=== PATIENT | male | born 1935 | race Caucasian/White ===

== ENCOUNTER 2017-05-02 07:54 | Day surgery (SDC) | payer MEDICARE, BC ==
[~2017-05-02 07:54] MED LIST: Lactated Ringers 1,000 ML IV SCH; Sodium Chloride 0.9% 10 ML Syringe FLUSH PRN
[2017-05-02] MEDS ORDERED: Ondansetron 4 MG/2 ML SDV IV ONE (07:55)
[2017-05-02] MEDS ORDERED: Propofol 200 MG/20 ML SDV IV ONE (07:55)
[2017-05-02] MEDS ORDERED: Glycopyrrolate 0.2 MG/ML 2 ML SDV IV ONE (07:55)
[2017-05-02] MEDS ORDERED: fentaNYL 100 MCG/2 ML SDV IV ONE (07:55)
[2017-05-02] MEDS ORDERED: Midazolam 1 MG/ML 2 ML SDV IV ONE (07:55)
[2017-05-02] MEDS ORDERED: ePHEDrine 50 MG/ML SDV IV ONE (07:55)
[2017-05-02] MEDS ORDERED: Lidocaine 1% with EPINEPHrine 1:100,000 30 ML MDV ONE (09:09)
[2017-05-02 09:29] LABS: CHLORIDE,CL 106 mmol/L (101-111); SODIUM,NA 139 mmol/L (135-145)
[2017-05-02] MEDS ORDERED: ceFAZolin 1 GM in Premix Bag 1 BAG IV ONE (10:00)
[2017-05-02] MEDS ORDERED: Lidocaine 1% with EPINEPHrine 1:100,000 30 ML MDV INJECT ONE (10:27)
--- NOTE | 2017-05-02 12:40 | OR ---
DATE: 05/02/2017 PREOPERATIVE DIAGNOSIS: Left inguinal hernia. POSTOPERATIVE DIAGNOSIS: Left indirect inguinal hernia. PROCEDURE: Open repair of left indirect inguinal hernia with mesh. ANESTHESIA: General. ESTIMATED BLOOD LOSS: Minimal. SPECIMEN: Hernia sac. INDICATION FOR PROCEDURE: This 82-year-old male has a symptomatic left inguinal hernia. PROCEDURE IN DETAIL: After adequate preparation, a left lower quadrant incision was made over the inguinal area and carried down to the external abdominal oblique. The fibers were incised longitudinally, and a superior and inferior flap was created. The inguinal canal contained an obvious large hernia sac. This was elevated out of the inguinal canal, and the sac was dissected free from the spermatic cord and vessels. The sac was then amputated using a Prolene suture at the base near the deep inguinal ring. The floor of the inguinal canal and hernia defect was then repaired using a Prolene mesh. This was run along the inguinal ligament with a 0 Prolene suture, and interrupted sutures were used to tack this to the rectus sheath superiorly. A brewster hole had been cut in the mesh and surrounded the cord. This adequately then closed the deep inguinal ring. The external oblique was resewn over the mesh using a 0 Vicryl suture. The Jennifer's and skin were closed with absorbable stitches. The patient was taken to recovery room in good condition. [facility] /[id number]
[2017-05-02 14:29] VITALS: BP 150/75
== END 2017-05-02 13:40 | disposition home or self-care (01) ==
LOC: DL.SDS 07:54
PROVIDERS: ATTEND Surgery
DX: K40.90 Unilateral inguinal hernia, without obstruction or gangrene, not specified as recurrent (principal); I25.10 Atherosclerotic heart disease of native coronary artery without angina pectoris; K21.9 Gastro-esophageal reflux disease without esophagitis; N40.0 Benign prostatic hyperplasia without lower urinary tract symptoms; I10 Essential (primary) hypertension; Z79.899 Other long term (current) drug therapy; Z95.5 Presence of coronary angioplasty implant and graft
CPT/HCPCS: 36415; 49505; 80048; 85014; 85018; J0690; J2250; J2405; J2704; J3010; J7120; 00830; C1781; J3490

== ENCOUNTER 2017-11-14 06:58 | Emergency (ER) | payer MEDICARE, BC ==
[2017-11-14 07:09] VITALS: BP 157/62
--- NOTE | 2017-11-14 07:30 | EDM.PDOC ---
ED HPI GENERAL MEDICAL PROBLEM - General Stated Complaint: IN BY AMBULANCE Time Seen by Provider: 11/14/17 07:20 Source of Information: Reports: Patient History Limitations: Reports: No Limitations - History of Present Illness INITIAL COMMENTS - FREE TEXT/NARRATIVE: This 82 yo male patient was brought to the ED by [facility] with an intercept from [facility] due to lower abdominal pain and a syncopial episode this morning. The patient reports that he feels a little better now, but continues to have some lower abdominal pain. The patient rates his current pain at a 1/10 mostly in the lower abdomen. The patient reports that he currently feels like he needs to have a bowel movement or urinate. The patient denies any lightheadedness at this time. The patient reports that he has been coming down with a "chest cold" and felt like he had some chest heaviness last night, but does not report any heaviness at this time. The patient reports that he had a bowel movement yesterday, but has not had one yet today. Onset: Today Duration: Constant (lower abdominal pain), Improving (lightheadedness) Location: Reports: Chest (heaviness), Abdomen (lower abdominal pain), Generalized (lightheaded) Quality: Reports: Ache, Dull Severity: Mild Improves with: Reports: Other (time) Worsens with: Reports: None Context: Reports: Other Bilateral Lower Abdomen Pain Score (Numeric/FACES): 7 - Related Data Allergies Allergy/AdvReac Type Severity Reaction Status Date / Time No Known Allergies Allergy Verified 11/14/17 07:08 Home Meds: Home Meds Aspirin 81 mg PO BID 01/03/17 [History] Fish Oil/[place]-3 Fatty Acids [Fish Oil 1,000 MG] 1 gm PO BID 01/03/17 [History] Flaxseed Oil [Flaxseed] 1,000 mg PO BID 01/03/17 [History] Glucosamine [Glucosamine Sulfate] 500 mg PO BID 01/03/17 [History] Metoprolol Succinate [Toprol XL] 12.5 mg PO BID 01/03/17 [History] Pravastatin [Pravachol] 20 mg PO .EVENING 01/03/17 [History] Psyllium Husk [Metamucil] 660 gm PO BEDTIME 01/03/17 [History] Omeprazole 20 mg PO DAILY 03/07/18 [History] Past Medical History HEENT History: Reports: None, Hard of Hearing, Impaired Vision Other HEENT History: glasses Cardiovascular History: Reports: Bypass, CAD, SD Other Cardiovascular History: Double bipass. Hx of stents, left in but are not functioning Respiratory History: Reports: None Gastrointestinal History: Reports: Hiatal Hernia, Other (See Below) Other Gastrointestinal History: INGUINAL HERNIA - LEFT. UMBILICAL HERNIA Genitourinary History: Reports: BPH Other Genitourinary History: hx of prostate cancer 2007, had 38 shots of radiation therapy Musculoskeletal History: Reports: Arthritis Neurological History: Reports: None Psychiatric History: Reports: None Endocrine/Metabolic History: Reports: None Hematologic History: Reports: None Immunologic History: Reports: None Oncologic (Cancer) History: Reports: Prostate Dermatologic History: Reports: None - Infectious Disease History Infectious Disease History: Reports: Chicken Pox, Measles, Mumps - Past Surgical History HEENT Surgical History: Reports: Cataract Surgery Other HEENT Surgeries/Procedures: both eyes Cardiovascular Surgical History: Reports: Carotid Stents, Coronary Artery Bypass , Coronary Artery Stent Other Cardiovascular Surgeries/Procedures: stents left in after bipass but are not functioning GI Surgical History: Reports: Appendectomy, Cholecystectomy Male Surgical History: Reports: Prostate Biopsy Musculoskeletal Surgical History: Reports: Knee Replacement Other Musculoskeletal Surgeries/Procedures:: hardware in knees Social & Family History - Family History Family Medical History: Noncontributory - Tobacco Use Smoking Status *Q: Never Smoker Second Hand Smoke Exposure: No - Caffeine Use Caffeine Use: Reports: Coffee Caffeine Use Comment: 2 cups daily - Recreational Drug Use Recreational Drug Use: No ED ROS GENERAL - Review of Systems Review Of Systems: ROS reveals no pertinent complaints other than HPI. ED EXAM, GENERAL - Physical Exam Exam: See Below Exam Limited By: No Limitations General Appearance: Alert, WD/WN, Mild Distress Eye Exam: Bilateral Eye: EOMI, Normal Inspection, PERRL Ears: Normal External Exam, Normal Canal, Hearing Grossly Normal, Normal TMs Nose: Normal Inspection, Normal Mucosa, No Blood Throat/Mouth: Normal Inspection, Normal Lips, Normal Teeth, Normal Gums, Normal Oropharynx, Normal Voice, No Airway Compromise Head: Atraumatic, Normocephalic Neck: Normal Inspection, Supple, Non-Tender, Full Range of Motion Respiratory/Chest: No Respiratory Distress, Lungs Clear, Normal Breath Sounds, No Accessory Muscle Use, Chest Non-Tender Cardiovascular: Normal Peripheral Pulses, Regular Rate, Rhythm, No Edema, No Gallop, No JVD, No Murmur, No Rub GI/Abdominal: Normal Bowel Sounds, Soft, Tender (lower abdomen (diffuse across entire lower abdomen)) (Male) Exam: Deferred Rectal (Males) Exam: Deferred Back Exam: Normal Inspection Extremities: Normal Inspection, Normal Range of Motion, Non-Tender, Normal Capillary Refill, No Pedal Edema Neurological: Alert, Oriented, CN II-XII Intact, Normal Cognition Psychiatric: Normal Affect, Normal Mood Skin Exam: Warm, Dry, Intact, Normal Color, No Rash Lymphatic: No Adenopathy Course - Vital Signs Last Recorded V/S: Last Vital Signs Temp 36.6 C 11/14/17 06:58 Pulse 78 11/14/17 06:58 Resp 20 11/14/17 06:58 BP 157/62 H 11/14/17 06:58 Pulse Ox 100 11/14/17 06:58 - Orders/Labs/Meds Orders: Active Orders 24 hr Category Date Time Status EKG Documentation Completion [RC] URGENT Care 11/14/17 07:07 Ordered Labs: Laboratory Tests 11/14/17 11/14/17 11/14/17 Range/Units 07:16 07:16 07:16 WBC 7.1 (5.0-10.0) 10^3/uL RBC 4.21 L (4.6-6.2) 10^6/uL Hgb 13.6 L (14.0-18.0) g/dL Hct 40.5 (40.0-54.0) % MCV 96.2 (80-100) fL MCH 32.3 (27.0-34.0) pg MCHC 33.6 (33.0-35.0) g/dL Plt Count 306 (150-450) 10^3/uL Neut % (Auto) 77.8 H (42.2-75.2) % Lymph % (Auto) 10.3 L (20.5-50.1) % Archer % (Auto) 8.7 H (2-8) % Eos % (Auto) 2.4 (1.0-3.0) % Baso % (Auto) 0.8 (0.0-1.0) % Sodium 138 (135-145) mmol/L Potassium 4.2 (3.6-5.0) mmol/L Chloride 105 (101-111) mmol/L Carbon Dioxide 24.0 (21.0-31.0) mmol/L Anion Gap 13.2 BUN 20 H (7-18) mg/dL Creatinine 1.2 (0.6-1.3) mg/dL Est Cr Clr Drug Dosing 45.13 mL/min Estimated GFR (MDRD) 58 BUN/Creatinine Ratio 16.66 Glucose 118 H (74-105) mg/dL Calcium 8.6 (8.4-10.2) mg/dl Total Bilirubin 0.8 (0.2-1.0) mg/dL AST 21 (10-42) IU/L ALT 16 (10-60) IU/L Alkaline Phosphatase 72 (42-121) IU/L Troponin I < 0.02 (0.00-0.02) ng/ml Total Protein 6.3 L (6.7-8.2) g/dl Albumin 3.6 (3.2-5.5) g/dl Globulin 2.7 Albumin/Globulin Ratio 1.33 Amylase 35 (28-100) U/L Lipase 29 (22-51) U/L Urine Color (YELLOW) Urine Appearance (CLEAR) Urine pH (5.0-9.0) Ur Specific [place] (1.005-1.030) Urine Protein (NEGATIVE) Urine Glucose (UA) (NEGATIVE) Urine Ketones (NEGATIVE) Urine Occult Blood (NEGATIVE) Urine Nitrite (NEGATIVE) Urine Bilirubin (NEGATIVE) Urine Urobilinogen (0.2-1.0) mg/dL Ur Leukocyte Esterase (NEGATIVE) Urine RBC /HPF Urine WBC (0-5/HPF) /HPF Ur Epithelial Cells /HPF Urine Bacteria (0-FEW/HPF) /HPF 11/14/17 Range/Units 08:19 WBC (5.0-10.0) 10^3/uL RBC (4.6-6.2) 10^6/uL Hgb (14.0-18.0) g/dL Hct (40.0-54.0) % MCV (80-100) fL MCH (27.0-34.0) pg MCHC (33.0-35.0) g/dL Plt Count (150-450) 10^3/uL Neut % (Auto) (42.2-75.2) % Lymph % (Auto) (20.5-50.1) % Archer % (Auto) (2-8) % Eos % (Auto) (1.0-3.0) % Baso % (Auto) (0.0-1.0) % Sodium (135-145) mmol/L Potassium (3.6-5.0) mmol/L Chloride (101-111) mmol/L Carbon Dioxide (21.0-31.0) mmol/L Anion Gap BUN (7-18) mg/dL Creatinine (0.6-1.3) mg/dL Est Cr Clr Drug Dosing mL/min Estimated GFR (MDRD) BUN/Creatinine Ratio Glucose (74-105) mg/dL Calcium (8.4-10.2) mg/dl Total Bilirubin (0.2-1.0) mg/dL AST (10-42) IU/L ALT (10-60) IU/L Alkaline Phosphatase (42-121) IU/L Troponin I (0.00-0.02) ng/ml Total Protein (6.7-8.2) g/dl Albumin (3.2-5.5) g/dl Globulin Albumin/Globulin Ratio Amylase (28-100) U/L Lipase (22-51) U/L Urine Color Yellow (YELLOW) Urine Appearance Clear (CLEAR) Urine pH 7.0 (5.0-9.0) Ur Specific [place] 1.020 (1.005-1.030) Urine Protein Negative (NEGATIVE) Urine Glucose (UA) Negative (NEGATIVE) Urine Ketones Negative (NEGATIVE) Urine Occult Blood Negative (NEGATIVE) Urine Nitrite Negative (NEGATIVE) Urine Bilirubin Negative (NEGATIVE) Urine Urobilinogen 0.2 (0.2-1.0) mg/dL Ur Leukocyte Esterase Negative (NEGATIVE) Urine RBC 0-5 /HPF Urine WBC 0-5 (0-5/HPF) /HPF Ur Epithelial Cells Occasional /HPF Urine Bacteria Occasional (0-FEW/HPF) /HPF - Re-Assessments/Exams Free Text/Narrative Re-Assessment/Exam: 11/14/17 08:40 The patient reports that while in the ED he attempted to have a bowel movement and used his finger to disimpact himself. The patient noticed some bleeding after he disimpacted himself. A digital rectal examination revealed normal rectal tone, there were excoriations to the rectum with no profuse bleeding. The patient's rectal vault was empty at time of examination. The patient was given the option of being moved to the floor for enemas, but the patient declined. The patient would prefer to go home and take laxatives, stool softeners and increase his oral fluid intake. Departure - Departure Time of Disposition: 08:34 Disposition: Home, Self-Care 01 Condition: Fair Clinical Impression: Constipation Qualifiers: Constipation type: unspecified constipation type Qualified Code(s): K59.00 - Constipation, unspecified Syncope Qualifiers: Syncope type: vasovagal syncope Qualified Code(s): R55 - Syncope and collapse - Discharge Information *PRESCRIPTION DRUG MONITORING PROGRAM REVIEWED*: Not Applicable *COPY OF PRESCRIPTION DRUG MONITORING REPORT IN PATIENT AKIRA: Not Applicable Instructions: Syncope, [id number], Constipation, Adult, [id number] Forms: ED Department Discharge Care Plan Goals: The patient was advised of the examination, lab, EKG and x-ray results during the visit. The patient was offered enemas given within the hospital, but the patient declined. The patient was encouraged to take his stool softeners and increase his oral fluid intake. If the patient has any additional symptoms or concerns, the patient should follow-up with his primary care facility or return to the ED. - My Orders Last 24 Hours: My Active Orders 11/14/17 07:07 EKG Documentation Completion [RC] URGENT - Assessment/Plan Last 24 Hours: My Active Orders 11/14/17 07:07 EKG Documentation Completion [RC] URGENT
[2017-11-14 07:42] LABS: ANION GAP 13.2; CHLORIDE,CL 105 mmol/L (101-111); SODIUM,NA 138 mmol/L (135-145)
--- NOTE | 2017-11-14 08:23 | CR ---
Clinical history: 82-year-old male emergency department with chest congestion and lower abdominal suzanna n (syncope). Interpretation: Sternotomy wires and surgical clips anterior mediastinum. Normal cardiac silhouette without cephalization of vascular flow, signs of alveolar edema or dependen t pleural fluid accumulation. No lung mass, hilar lymphadenopathy or focal lobar pneumonia. No atelectasis/collapse. No pneumothorax. CONCLUSION: No acute cardiopulmonary abnormality. (No free subdiaphragmatic air).
--- NOTE | 2017-11-14 08:25 | CR ---
Clinical history: 82-year-old male syncopal episode, chest congestion and lower abdominal pain. "No a cute cardiopulmonary abnormality" this patient with sternotomy wires and mediastinal clips. Interpretation: Mild scoliosis and arthritic changes of the lumbar spine. No foreign body, abdominal soft tissue mass, or mechanical bowel obstruction. (Several tiny phlebolith-like radiopacities in the pelvis particularly on the left). No free subdiaphragmatic air. CONCLUSION: Nonspecific plain film exam abdomen i.e. negative.
== END 2017-11-14 09:44 | disposition home or self-care (01) ==
LOC: DL.ED 06:58
DX: R55 Syncope and collapse (principal); K59.00 Constipation, unspecified; Z79.82 Long term (current) use of aspirin
CPT/HCPCS: 36415; 71046; 74019; 80053; 81001; 82150; 83690; 84484; 85025; 93005; 99283; 99285

== ENCOUNTER 2020-06-22 08:45 | Emergency (ER) | payer MEDICARE, BC ==
--- NOTE | 2020-06-22 08:46 | EDM.PDOC ---
"ED HPI GENERAL MEDICAL PROBLEM - General Chief Complaint: Abdominal Pain Stated Complaint: UNABLE TO URINATE, CONSTIPATED, ABDOMINAL PAIN Time Seen by Provider: 06/22/20 08:45 Source of Information: Reports: Patient, EMS, Old Records, RN, RN Notes Reviewed History Limitations: Reports: No Limitations - History of Present Illness INITIAL COMMENTS - FREE TEXT/NARRATIVE: Pt arrives from home by ambulance with onset of nausea and vomiting after dinner last night. He claims he has been unable to pass any urine since last night, but has the urge to urinate. His last BM was yesterday, but was small and hard, and he did not feel relieved. Pt has had a constant urge to have a BM but cannot pass any stool. He reports onset of fever and chills through the night. Denies cough or shortness of breath. EMS reported pt had chest pain, but pt states it is from his abdomen being over full, and from vomiting. Onset: Gradual Onset Date: 06/21/20 Onset Time: 20:00 Duration: Constant Location: Reports: Abdomen Quality: Reports: Ache, Pressure Severity: Severe Improves with: Reports: None Worsens with: Reports: None Associated Symptoms: Reports: No Other Symptoms Bilateral Bladder Pain Score (Numeric/FACES): 5 - Related Data Allergies Allergy/AdvReac Type Severity Reaction Status Date / Time No Known Allergies Allergy Verified 06/22/20 09:22 Home Meds: Home Meds Aspirin 81 mg PO BID 01/03/17 [History] Flaxseed Oil [Flaxseed] 1,000 mg PO BID 01/03/17 [History] Glucosamine [Glucosamine Sulfate] 500 mg PO BID 01/03/17 [History] Metoprolol Succinate [Toprol XL] 12.5 mg PO BID 01/03/17 [History] Pravastatin [Pravachol] 20 mg PO .EVENING 01/03/17 [History] Psyllium Husk [Metamucil] 660 gm PO BEDTIME 01/03/17 [History] Cholecalciferol (Vitamin D3) [Vitamin D] 5,000 units PO DAILY 08/30/18 [History] Finasteride 5 mg PO DAILY 08/30/18 [History] Lisinopril 5 mg PO DAILY 08/30/18 [History] Multivit-Min/FA/Lycopen/Lutein [Centrum Silver Tablet] 1 tab PO DAILY 08/30/18 [History] Oxybutynin Chloride 5 mg PO DAILY 08/30/18 [History] Past Medical History HEENT History: Reports: Hard of Hearing, Impaired Vision Other HEENT History: glasses Cardiovascular History: Reports: Bypass, CAD, PA, Other (See Below) Other Cardiovascular History: Double bipass. Hx of stents, left in but are not functioning Respiratory History: Reports: None Gastrointestinal History: Reports: Hiatal Hernia, Other (See Below) Other Gastrointestinal History: INGUINAL HERNIA - LEFT. UMBILICAL HERNIA Genitourinary History: Reports: BPH Other Genitourinary History: hx of prostate cancer 2007, had 38 shots of radiation therapy Musculoskeletal History: Reports: Arthritis Neurological History: Reports: None Psychiatric History: Reports: Anxiety Endocrine/Metabolic History: Reports: None Hematologic History: Reports: None Immunologic History: Reports: None Oncologic (Cancer) History: Reports: Prostate Dermatologic History: Reports: None - Infectious Disease History Infectious Disease History: Reports: Chicken Pox, Measles, Mumps - Past Surgical History HEENT Surgical History: Reports: Cataract Surgery Other HEENT Surgeries/Procedures: both eyes Cardiovascular Surgical History: Reports: Carotid Stents, Coronary Artery Bypass, Coronary Artery Stent, Valve Replacement Other Cardiovascular Surgeries/Procedures: stents left in after bipass but are not functioning Respiratory Surgical History: Reports: None GI Surgical History: Reports: Appendectomy, Cholecystectomy, Colonoscopy, EGD, Hernia, Inguinal Male Surgical History: Reports: Prostate Biopsy Endocrine Surgical History: Reports: None Neurological Surgical History: Reports: None Musculoskeletal Surgical History: Reports: Knee Replacement, Shoulder Surgery, Other (See Below) Other Musculoskeletal Surgeries/Procedures:: hardware in knees Oncologic Surgical History: Reports: Other (See Below) Other Oncologic Surgeries/Procedures: PROSTRATE BIOPSY Dermatological Surgical History: Reports: None Social & Family History - Family History Family Medical History: No Pertinent Family History - Caffeine Use Caffeine Use: Reports: Coffee Caffeine Use Comment: 1-2 cups daily - Living Situation & Occupation Living situation: Reports: , with Spouse Occupation: Retired ED ROS GENERAL - Review of Systems Review Of Systems: Comprehensive ROS is negative, except as noted in HPI. ED EXAM, GENERAL - Physical Exam Exam: See Below Exam Limited By: No Limitations General Appearance: Alert, WD/WN, No Apparent Distress Eye Exam: Bilateral Eye: Normal Inspection (No scleral icterus) Nose: Normal Inspection, Normal Mucosa, No Blood Throat/Mouth: Normal Lips, Normal Voice, No Airway Compromise, Other (Dry oral mucosa) Head: Atraumatic, Normocephalic Neck: Normal Inspection, Supple, Non-Tender, Full Range of Motion Respiratory/Chest: No Respiratory Distress, Lungs Clear, Normal Breath Sounds, No Accessory Muscle Use, Chest Non-Tender Cardiovascular: Regular Rate, Rhythm, No Edema, Tachycardia GI/Abdominal: Normal Bowel Sounds, Soft, Pelvis Stable, Distended (Mild), Tender (Generalized), Other (Urinary bladder palpable just below the umbilicus). No: Guarding, Rigid, Rebound (Male) Exam: Deferred Rectal (Males) Exam: Deferred Back Exam: Normal Inspection. No: CVA Tenderness (L), CVA Tenderness (R) Extremities: Normal Inspection, Normal Range of Motion, Non-Tender, Normal Capillary Refill, No Pedal Edema Neurological: Alert, Oriented, CN II-XII Intact, Normal Cognition, Normal Gait, No Motor/Sensory Deficits Psychiatric: Normal Affect, Normal Mood Skin Exam: Warm, Dry, Intact, Normal Color, No Rash #1 Interpretation EKG Date: 06/22/20 Time: 08:49 Rhythm: Other (sinus tachycardia with ventricular premature complex) Rate (Beats/Min): 119 [place]: Other (left anterior fascicular block) P-Wave: Present QRS: Other (LVH with secondary repolarization abnormality) ST-T: Normal QT: Normal Course - Vital Signs Last Recorded V/S: Last Vital Signs Temp 100.0 F 06/22/20 09:50 Pulse 111 H 06/22/20 09:50 Resp 18 06/22/20 09:50 BP 108/46 L 06/22/20 09:50 Pulse Ox 99 06/22/20 09:50 - Orders/Labs/Meds Orders: Active Orders 24 hr Category Date Time Status EKG 12 Lead [EKG Documentation Completion] [RC] STAT Care 06/22/20 08:44 Active Enema [RC] ASDIRECTED Care 06/22/20 11:43 Active Shea Catheter Insertion [Insert Urinary Catheter] [OM. Care 06/22/20 08:55 Ordered PC] Stat Peripheral IV Care [RC] . DIRECTED Care 06/22/20 08:55 Active Urinary Catheter Assessment [RC] ASDIRECTED Care 06/22/20 08:55 Active CULTURE BLOOD [BC] Stat Lab 06/22/20 09:15 Received CULTURE BLOOD [] Stat Lab 06/22/20 09:20 Received CULTURE STREP A CONFIRMATION [] Stat Lab 06/22/20 10:02 Results CULTURE URINE [] Stat Lab 06/22/20 06:09 Received STREP SCRN A RAPID W CULT CONF [] Stat Lab 06/22/20 10:02 Results Sodium Chloride 0.9% [Saline Flush] Med 06/22/20 08:55 Active 10 ml FLUSH ASDIRECTED PRN Blood Culture x2 Reflex Set [OM.PC] Stat Ot 06/22/20 08:54 Ordered Peripheral IV Insertion Adult [OM.PC] Stat Ot 06/22/20 08:54 Ordered Medication Orders Sodium Chloride (Sodium Chloride 0.9% 10 Ml Syringe) 10 ml FLUSH ASDIRECTED PRN PRN Reason: Keep Vein Open Labs: Laboratory Tests 06/22/20 06/22/20 06/22/20 Range/Units 06:09 09:15 09:15 WBC 11.9 H (5.0-10.0) 10^3/uL RBC 4.32 L (4.6-6.2) 10^6/uL Hgb 14.1 (14.0-18.0) g/dL Hct 41.2 (40.0-54.0) % MCV 95.4 (80-100) fL MCH 32.6 (27.0-34.0) pg MCHC 34.2 (33.0-35.0) g/dL Plt Count 349 D (150-450) 10^3/uL Neut % (Auto) 90.6 H (42.2-75.2) % Lymph % (Auto) 0.8 L (20.5-50.1) % [place] % (Auto) 8.4 H (2-8) % Eos % (Auto) 0.1 L (1.0-3.0) % Baso % (Auto) 0.1 (0.0-1.0) % Sodium 142 (136-145) mmol/L Potassium 3.8 (3.5-5.1) mmol/L Chloride 105 (98-107) mmol/L Carbon Dioxide 24 (21-32) mmol/L Anion Gap 16.8 H (7-13) mEq/L BUN 30 H (7-18) mg/dL Creatinine 1.64 H (0.70-1.30) mg/dL Est Cr Clr Drug Dosing 31.28 mL/min Estimated GFR (MDRD) 40 BUN/Creatinine Ratio 18.3 (No establ ref range) Glucose 147 H (70-99) mg/dL Lactic Acid (0.4-2.0) mmol/L Calcium 8.4 L (8.5-10.1) mg/dL Total Bilirubin 0.7 (0.2-1.0) mg/dL AST 16 (15-37) U/L ALT 32 (16-63) U/L Alkaline Phosphatase 84 (46-116) U/L Troponin I < 0.017 (0.000-0.056) ng/mL Total Protein 6.4 (6.4-8.2) g/dL Albumin 3.6 (3.4-5.0) g/dL Globulin 2.8 Albumin/Globulin Ratio 1.3 Amylase 30 (25-115) U/L Lipase 92 (73-393) U/L Urine Color Yellow (YELLOW) Urine Appearance Clear (CLEAR) Urine pH 5.5 (5.0-9.0) Ur Specific [place] 1.020 (1.005-1.030) Urine Protein Negative (NEGATIVE) Urine Glucose (UA) Negative (NEGATIVE) Urine Ketones 15 H (NEGATIVE) Urine Occult Blood Small H (NEGATIVE) Urine Nitrite Negative (NEGATIVE) Urine Bilirubin Negative (NEGATIVE) Urine Urobilinogen 0.2 (0.2-1.0) mg/dL Ur Leukocyte Esterase Trace H (NEGATIVE) Urine RBC 5-10 H /HPF Urine WBC 10-20 H (0-5/HPF) /HPF Ur Epithelial Cells Rare (NOT SEEN) /HPF Amorphous Sediment Few (NOT SEEN) /HPF Urine Bacteria Moderate H (0-FEW/HPF) /HPF Influenza Type A RNA (NEGATIVE) Influenza Type B RNA (NEGATIVE) SARS-CoV-2 RNA (RABIA) (NEGATIVE) 06/22/20 06/22/20 Range/Units 09:15 10:02 WBC (5.0-10.0) 10^3/uL RBC (4.6-6.2) 10^6/uL Hgb (14.0-18.0) g/dL Hct (40.0-54.0) % MCV (80-100) fL MCH (27.0-34.0) pg MCHC (33.0-35.0) g/dL Plt Count (150-450) 10^3/uL Neut % (Auto) (42.2-75.2) % Lymph % (Auto) (20.5-50.1) % [place] % (Auto) (2-8) % Eos % (Auto) (1.0-3.0) % Baso % (Auto) (0.0-1.0) % Sodium (136-145) mmol/L Potassium (3.5-5.1) mmol/L Chloride (98-107) mmol/L Carbon Dioxide (21-32) mmol/L Anion Gap (7-13) mEq/L BUN (7-18) mg/dL Creatinine (0.70-1.30) mg/dL Est Cr Clr Drug Dosing mL/min Estimated GFR (MDRD) BUN/Creatinine Ratio (No establ ref range) Glucose (70-99) mg/dL Lactic Acid 1.9 (0.4-2.0) mmol/L Calcium (8.5-10.1) mg/dL Total Bilirubin (0.2-1.0) mg/dL AST (15-37) U/L ALT (16-63) U/L Alkaline Phosphatase (46-116) U/L Troponin I (0.000-0.056) ng/mL Total Protein (6.4-8.2) g/dL Albumin (3.4-5.0) g/dL Globulin Albumin/Globulin Ratio Amylase (25-115) U/L Lipase (73-393) U/L Urine Color (YELLOW) Urine Appearance (CLEAR) Urine pH (5.0-9.0) Ur Specific [place] (1.005-1.030) Urine Protein (NEGATIVE) Urine Glucose (UA) (NEGATIVE) Urine Ketones (NEGATIVE) Urine Occult Blood (NEGATIVE) Urine Nitrite (NEGATIVE) Urine Bilirubin (NEGATIVE) Urine Urobilinogen (0.2-1.0) mg/dL Ur Leukocyte Esterase (NEGATIVE) Urine RBC /HPF Urine WBC (0-5/HPF) /HPF Ur Epithelial Cells (NOT SEEN) /HPF Amorphous Sediment (NOT SEEN) /HPF Urine Bacteria (0-FEW/HPF) /HPF Influenza Type A RNA Negative (NEGATIVE) Influenza Type B RNA Negative (NEGATIVE) SARS-CoV-2 RNA (RABIA) Negative (NEGATIVE) Meds: Medications Generic Name Dose Route Start Last Admin Trade Name Freq PRN Reason Stop Dose Admin Sodium Chloride 10 ml 06/22/20 08:55 Sodium Chloride 0.9% 10 Ml Syringe FLUSH ASDIRECTED PRN Keep Vein Open Discontinued Medications Generic Name Dose Route Start Last Admin Trade Name Freq PRN Reason Stop Dose Admin Sodium Chloride 1,000 mls @ 999 mls/hr 06/22/20 09:27 06/22/20 09:48 Normal Saline IV 06/22/20 10:27 999 mls/hr .BOLUS ONE Administration Ceftriaxone Sodium 2 gm/ 100 mls @ 200 mls/hr 06/22/20 11:04 06/22/20 11:24 Sodium Chloride IV 06/22/20 11:33 200 mls/hr ONETIME ONE Administration Lactulose 20 gm 06/22/20 11:43 06/22/20 11:55 Lactulose Soln 10 Gm/15 Ml 30 Ml Ud Cup PO 06/22/20 11:44 20 gm ONETIME ONE Administration Lidocaine HCl 10 ml 06/22/20 08:53 Lidocaine 2% Jelly 10 Ml Urojet MUCMEM 06/22/20 08:54 ONETIME ONE Ondansetron HCl 4 mg 06/22/20 08:53 Ondansetron 4 Mg/2 Ml Sdv IV 06/22/20 08:54 ONETIME ONE - Radiology Interpretation Free Text/Narrative:: [facility] Final Radiology Report Call: [phone] assistance Online chat: [email or web address] Name: ASHKAN YUEN Age: 85Years M Date: 06/22/2020 SSN: -- : [id number] Study: CT ABDOMEN PELVIS WO CONT Requesting Physician: ABDULKADIR VIEIRA Images: [id number] Addl Studies: Provided Clinical History: Abdominal pain, fever, constipation Contrast: Without Contrast Medium: Contrast Amount: Contrast Method: Page 1 of 2 PROCEDURE INFORMATION: Exam: CT Abdomen And Pelvis Without Contrast Exam date and time: 06/22/2020 11:10 AM Age: 85 years old Clinical indication: Abdominal pain; Generalized; Prior surgery; Surgery date: 6+ months; Surgery type: Appendectomy, cholecystectomy; Patient HX: HX prostate CA; Additional info: Abdominal pain, fever, constipation TECHNIQUE: Imaging protocol: Computed tomography of the abdomen and pelvis without contrast. Radiation optimization: All CT scans at this facility use at least one of these dose optimization techniques: automated exposure control; mA and/or kV adjustment per patient size (includes targeted exams where dose is matched to clinical indication); or iterative reconstruction. COMPARISON: CT Abdomen Pelvis w Cont 08/29/2018 8:14 AM FINDINGS: Lungs: Chronic changes are present within the lung parenchyma. No pulmonary fibrosis or bronchiectasis identified. Liver: Normal. No mass. Gallbladder and bile ducts: The gallbladder has been removed. There is no biliary tract obstruction. Pancreas: Normal. No ductal dilation. Spleen: Punctate calcifications are present within the spleen likely due to old granulomatous disease. There is also a low-density lesion within the spleen measuring approximately 1.2 x 1.1 cm in size. This is nonspecific and could represent a cyst. Adrenal glands: Normal. No mass. Kidneys and ureters: Normal. No hydronephrosis. Stomach and bowel: Moderate amount of stool is present within the colon. Mild constipation is possible. Stomach and small bowel are decompressed. There is no bowel obstruction. ASHKAN YUEN | Final Radiology Report CONFIDENTIALITY STATEMENT This report is intended only for use by the referring physician, and only in accordance with law. If you received this in error, call [phone]. Page 2 of 2 Appendix: No evidence of appendicitis. Intraperitoneal space: Unremarkable. No free air. No significant fluid collection. Vasculature: Unremarkable. No abdominal aortic aneurysm. Lymph nodes: Unremarkable. No enlarged lymph nodes. Urinary bladder: Shea catheter is present within the urinary bladder. Reproductive: Prostate gland is moderately enlarged. Bones/joints: Moderate grade degenerative changes are noted within the lumbar spine. No compression fracture or focal lesion identified. Soft tissues: Unremarkable. Other findings: Moderate to advanced coronary calcium is present. IMPRESSION: 1. Moderate constipation without obstruction. 2. Shea catheter within the urinary bladder. 3. Moderate prostatomegaly. 4. Punctate calcification is present within the spleen likely due to old granulomatous disease. There is also a small hypoattenuating lesion within the spleen. This is too small to definitively characterize but likely represents a cyst. 5. Status post cholecystectomy without biliary tract obstruction. Thank you for allowing us to participate in the care of your patient. Dictated and Authenticated by: Abimael Valencia MD 06/22/2020 11:40 AM Central Time ([place] & [place]) - Re-Assessments/Exams Free Text/Narrative Re-Assessment/Exam: 06/22/20 13:39 Pt had a large BM and feels relieved. No c/o pain. Departure - Departure Time of Disposition: 13:39 Disposition: Home, Self-Care 01 Condition: Good Clinical Impression: Urinary retention with incomplete bladder emptying, Fecal impaction Constipation Qualifiers: Constipation type: unspecified constipation type Qualified Code(s): K59.00 - Constipation, unspecified Urinary tract infection Qualifiers: Urinary tract infection type: site unspecified Hematuria presence: without hematuria Qualified Code(s): N39.0 - Urinary tract infection, site not specified - Discharge Information *PRESCRIPTION DRUG MONITORING PROGRAM REVIEWED*: Not Applicable *COPY OF PRESCRIPTION DRUG MONITORING REPORT IN PATIENT AKIRA: Not Applicable Instructions: Urinary Tract Infection, Adult, Constipation, Adult, Acute Urinary Retention, Male Forms: ED Department Discharge Additional Instructions: Rx: Cipro 500mg Follow up in clinic this week for recheck if needed. Sepsis Event Note (ED) - Focused Exam Vital Signs: Vital Signs Temp Pulse Resp BP Pulse Ox 06/22/20 09:50 100.0 F 111 H 18 108/46 L 99 06/22/20 08:52 101.8 F H 120 H 13 112/63 96 - My Orders Last 24 Hours: My Active Orders 06/22/20 06:09 CULTURE URINE [RM] Stat 06/22/20 08:44 EKG 12 Lead [EKG Documentation Completion] [RC] STAT 06/22/20 08:54 Blood Culture x2 Reflex Set [OM.PC] Stat Peripheral IV Insertion Adult [OM.PC] Stat 06/22/20 08:55 Shea Catheter Insertion [Insert Urinary Catheter] [OM.PC] Stat Peripheral IV Care [RC] . DIRECTED Urinary Catheter Assessment [RC] ASDIRECTED Sodium Chloride 0.9% [Saline Flush] 10 ml FLUSH ASDIRECTED PRN 06/22/20 09:15 CULTURE BLOOD [BC] Stat 06/22/20 09:20 CULTURE BLOOD [BC] Stat 06/22/20 10:02 CULTURE STREP A CONFIRMATION [RM] Stat STREP SCRN A RAPID W CULT CONF [RM] Stat 06/22/20 11:43 Enema [RC] ASDIRECTED - Assessment/Plan Last 24 Hours: My Active Orders 06/22/20 06:09 CULTURE URINE [RM] Stat 06/22/20 08:44 EKG 12 Lead [EKG Documentation Completion] [RC] STAT 06/22/20 08:54 Blood Culture x2 Reflex Set [OM.PC] Stat Peripheral IV Insertion Adult [OM.PC] Stat 06/22/20 08:55 Shea Catheter Insertion [Insert Urinary Catheter] [OM.PC] Stat Peripheral IV Care [RC] . DIRECTED Urinary Catheter Assessment [RC] ASDIRECTED Sodium Chloride 0.9% [Saline Flush] 10 ml FLUSH ASDIRECTED PRN 06/22/20 09:15 CULTURE BLOOD [BC] Stat 06/22/20 09:20 CULTURE BLOOD [BC] Stat 06/22/20 10:02 CULTURE STREP A CONFIRMATION [RM] Stat STREP SCRN A RAPID W CULT CONF [] Stat 06/22/20 11:43 Enema [RC] ASDIRECTED"
[2020-06-22] MEDS ORDERED: Ondansetron 4 MG/2 ML SDV IV ONE (08:53)
[2020-06-22] MEDS ORDERED: Lidocaine 2% Jelly 10 ML Urojet MUCMEM ONE (08:53)
[2020-06-22] MEDS ORDERED: Sodium Chloride 0.9% 10 ML Syringe FLUSH PRN (08:55)
[2020-06-22] MEDS ORDERED: Sodium Chloride 0.9% 1,000 ML IV ONE (09:27)
[2020-06-22 09:49] LABS: ANION GAP 16.8 mEq/L (7-13); CHLORIDE,CL 105 mmol/L (98-107); SODIUM,NA 142 mmol/L (136-145)
[2020-06-22 09:51] VITALS: BP 108/46; PULSE 111
[2020-06-22 10:54] LABS: CORONAVIRUS COVID-19 NAA NEGATIVE (NEGATIVE)
[2020-06-22] MEDS ORDERED: cefTRIAXone 2 GM in Sodium Chloride 0.9% 100 ML IV ONE (11:04)
--- NOTE | 2020-06-22 11:40 | CT ---
PROCEDURE INFORMATION: Exam: CT Abdomen And Pelvis Without Contrast Exam date and time: 06/22/2020 11:10 AM Age: 85 years old Clinical indication: Abdominal pain; Generalized; Prior surgery; Surgery date: 6+ months; Surgery type: Appendectomy, cholecystectomy; Patient HX: HX prostate CA; Additional info: Abdominal pain, fever, constipation TECHNIQUE: Imaging protocol: Computed tomography of the abdomen and pelvis without contrast. Radiation optimization: All CT scans at this facility use at least one of these dose optimization techniques: automated exposure control; mA and/or kV adjustment per patient size (includes targeted exams where dose is matched to clinical indication); or iterative reconstruction. COMPARISON: CT Abdomen Pelvis w Cont 08/29/2018 8:14 AM FINDINGS: Lungs: Chronic changes are present within the lung parenchyma. No pulmonary fibrosis or bronchiectasis identified. Liver: Normal. No mass. Gallbladder and bile ducts: The gallbladder has been removed. There is no biliary tract obstruction. Pancreas: Normal. No ductal dilation. Spleen: Punctate calcifications are present within the spleen likely due to old granulomatous disease. There is also a low-density lesion within the spleen measuring approximately 1.2 x 1.1 cm in size. This is nonspecific and could represent a cyst. Adrenal glands: Normal. No mass. Kidneys and ureters: Normal. No hydronephrosis. Stomach and bowel: Moderate amount of stool is present within the colon. Mild constipation is possible. Stomach and small bowel are decompressed. There is no bowel obstruction. Appendix: No evidence of appendicitis. Intraperitoneal space: Unremarkable. No free air. No significant fluid collection. Vasculature: Unremarkable. No abdominal aortic aneurysm. Lymph nodes: Unremarkable. No enlarged lymph nodes. Urinary bladder: Shea catheter is present within the urinary bladder. Reproductive: Prostate gland is moderately enlarged. Bones/joints: Moderate grade degenerative changes are noted within the lumbar spine. No compression fracture or focal lesion identified. Soft tissues: Unremarkable. Other findings: Moderate to advanced coronary calcium is present. IMPRESSION: 1. Moderate constipation without obstruction. 2. Shea catheter within the urinary bladder. 3. Moderate prostatomegaly. 4. Punctate calcification is present within the spleen likely due to old granulomatous disease. There is also a small hypoattenuating lesion within the spleen. This is too small to definitively characterize but likely represents a cyst. 5. Status post cholecystectomy without biliary tract obstruction.
[2020-06-22] MEDS ORDERED: Lactulose Soln 10 GM/15 ML 30 ML UD Cup PO ONE (11:43)
== END 2020-06-22 14:45 | disposition home or self-care (01) ==
LOC: DL.ED 08:45
DX: N39.0 Urinary tract infection, site not specified (principal); K59.00 Constipation, unspecified; N40.1 Benign prostatic hyperplasia with lower urinary tract symptoms; R33.8 Other retention of urine; I25.2 Old myocardial infarction; M19.90 Unspecified osteoarthritis, unspecified site; I25.10 Atherosclerotic heart disease of native coronary artery without angina pectoris; Z95.1 Presence of aortocoronary bypass graft; Z79.82 Long term (current) use of aspirin; Z79.899 Other long term (current) drug therapy; Z20.822 Contact with and (suspected) exposure to COVID-19
CPT/HCPCS: 0240U; 36415; 74176; 80053; 81001; 82150; 83605; 83690; 84484; 85025; 87040; 87081; 87086; 87430; 93005; 93010; 96365; 99284; 99285; A9270; J0696; J7030; 81003; 87088; 87186

== ENCOUNTER 2020-10-29 08:41 | Emergency (ER) | payer MEDICARE, BC ==
[2020-10-29] MEDS ORDERED: Sodium Chloride 0.9% 10 ML Syringe FLUSH PRN (09:15)
[2020-10-29 09:22] VITALS: BP 139/75; PULSE 75
--- NOTE | 2020-10-29 09:50 | CT ---
PROCEDURE INFORMATION: Exam: CT Head Without Contrast Exam date and time: 10/29/2020 9:27 AM Age: 85 years old Clinical indication: Other: Near syncope TECHNIQUE: Imaging protocol: Computed tomography of the head without contrast. Radiation optimization: All CT scans at this facility use at least one of these dose optimization techniques: automated exposure control; mA and/or kV adjustment per patient size (includes targeted exams where dose is matched to clinical indication); or iterative reconstruction. COMPARISON: No relevant prior studies available. FINDINGS: Brain: Normal. No hemorrhage. Unremarkable white matter. No mass effect. Cerebral ventricles: No ventriculomegaly. Paranasal sinuses: Fluids/mucosal thickening bilateral maxillary sinuses. Mastoid air cells: Visualized mastoid air cells are well aerated. Bones/joints: Unremarkable. No acute fracture. Soft tissues: Unremarkable. IMPRESSION: 1. No acute intracranial findings. 2. Bilateral mild maxillary sinus disease.
[2020-10-29 10:09] LABS: ANION GAP 11.4 mEq/L (7-13)
[2020-10-29] MEDS ORDERED: Oxymetazoline 0.05% Nasal Spray 30 ML Bottle NAS ONE (10:22)
--- NOTE | 2020-10-29 10:28 | EDM.PDOC ---
ED HPI GENERAL MEDICAL PROBLEM - General Chief Complaint: Cardiovascular Problem Stated Complaint: LIGHT HEADED / COUGH / SINUS INFECTION RECENTL Time Seen by Provider: 10/29/20 10:23 Source of Information: Reports: Patient History Limitations: Reports: No Limitations - History of Present Illness INITIAL COMMENTS - FREE TEXT/NARRATIVE: 85 y/o M c/o sinus congestion, sinus pressure and productive yellow cough since Tuesday. Pt has tried OTC decongestants with no success and reports the medicine made him feel lightheaded and woozy. Hx of 2 vessel bypass in 1999. Pt reports his chest hurts when he coughs. Denies fever, cough, chills, drugs ,etoh, db, abd pn, back n, extremity pn, jaw pain. Pt would like something to help him breathe through his nose better. Onset: Gradual Duration: Day(s): Location: Reports: Head Quality: Reports: Pressure Severity: Mild Improves with: Reports: None Worsens with: Reports: Medication Generalized Pain Score (Numeric/FACES): 8 - Related Data Allergies Allergy/AdvReac Type Severity Reaction Status Date / Time No Known Allergies Allergy Verified 10/29/20 09:23 Home Meds: Home Meds Aspirin 81 mg PO BID 01/03/17 [History] Flaxseed Oil [Flaxseed] 1,000 mg PO BID 01/03/17 [History] Glucosamine [Glucosamine Sulfate] 500 mg PO BID 01/03/17 [History] Metoprolol Succinate [Toprol XL] 12.5 mg PO BID 01/03/17 [History] Pravastatin [Pravachol] 20 mg PO .EVENING 01/03/17 [History] Psyllium Husk [Metamucil] 660 gm PO BEDTIME 01/03/17 [History] Cholecalciferol (Vitamin D3) [Vitamin D] 5,000 units PO DAILY 08/30/18 [History] Finasteride 5 mg PO DAILY 08/30/18 [History] Lisinopril 5 mg PO DAILY 08/30/18 [History] Multivit-Min/FA/Lycopen/Lutein [Centrum Silver Tablet] 1 tab PO DAILY 08/30/18 [History] Oxybutynin Chloride 5 mg PO DAILY 08/30/18 [History] Past Medical History HEENT History: Reports: Hard of Hearing, Impaired Vision Other HEENT History: glasses Cardiovascular History: Reports: Bypass, CAD, GA, Other (See Below) Other Cardiovascular History: Double bipass. Hx of stents, left in but are not functioning Respiratory History: Reports: None Gastrointestinal History: Reports: Hiatal Hernia, Other (See Below) Other Gastrointestinal History: INGUINAL HERNIA - LEFT. UMBILICAL HERNIA Genitourinary History: Reports: BPH Other Genitourinary History: hx of prostate cancer 2007, had 38 shots of radiation therapy Musculoskeletal History: Reports: Arthritis Neurological History: Reports: None Psychiatric History: Reports: Anxiety Endocrine/Metabolic History: Reports: None Hematologic History: Reports: None Immunologic History: Reports: None Oncologic (Cancer) History: Reports: Prostate Dermatologic History: Reports: None - Infectious Disease History Infectious Disease History: Reports: Chicken Pox, Measles, Mumps - Past Surgical History HEENT Surgical History: Reports: Cataract Surgery Other HEENT Surgeries/Procedures: both eyes Cardiovascular Surgical History: Reports: Carotid Stents, Coronary Artery Bypass, Coronary Artery Stent, Valve Replacement Other Cardiovascular Surgeries/Procedures: stents left in after bipass but are not functioning Respiratory Surgical History: Reports: None GI Surgical History: Reports: Appendectomy, Cholecystectomy, Colonoscopy, EGD, Hernia, Inguinal Male Surgical History: Reports: Prostate Biopsy Endocrine Surgical History: Reports: None Neurological Surgical History: Reports: None Musculoskeletal Surgical History: Reports: Knee Replacement, Shoulder Surgery, Other (See Below) Other Musculoskeletal Surgeries/Procedures:: hardware in knees Oncologic Surgical History: Reports: Other (See Below) Other Oncologic Surgeries/Procedures: PROSTRATE BIOPSY Dermatological Surgical History: Reports: None Social & Family History - Family History Family Medical History: No Pertinent Family History - Caffeine Use Caffeine Use: Reports: Coffee, Soda Caffeine Use Comment: 1-2 cups daily - Living Situation & Occupation Living situation: Reports: , with Spouse Occupation: Retired ED ROS GENERAL - Review of Systems Review Of Systems: Comprehensive ROS is negative, except as noted in HPI. ED EXAM, GENERAL - Physical Exam Exam: See Below Exam Limited By: No Limitations General Appearance: Alert Eye Exam: Bilateral Eye: PERRL Ears: Normal External Exam, Normal Canal, Hearing Grossly Normal, Normal TMs Nose: Other (swollen nasal turbinates, tenderness over the maxillary sinues) Throat/Mouth: Normal Inspection, Normal Lips, Normal Teeth, Normal Gums, Normal Oropharynx, Normal Voice, No Airway Compromise Head: Atraumatic, Normocephalic Neck: Supple, Non-Tender Respiratory/Chest: No Respiratory Distress, Lungs Clear, Normal Breath Sounds Cardiovascular: Normal Peripheral Pulses, Regular Rate, Rhythm, No JVD GI/Abdominal: Soft, Non-Tender (Male) Exam: Deferred Rectal (Males) Exam: Deferred Back Exam: Normal Inspection, Full Range of Motion Extremities: Normal Inspection, Normal Range of Motion Neurological: Alert, Oriented Psychiatric: Normal Affect, Normal Mood Skin Exam: Warm, Dry, Intact Course - Vital Signs Last Recorded V/S: Last Vital Signs Temp 98.2 F 10/29/20 09:17 Pulse 75 10/29/20 09:17 Resp 19 10/29/20 09:17 BP 139/75 10/29/20 09:17 Pulse Ox 95 10/29/20 09:17 - Orders/Labs/Meds Orders: Active Orders 24 hr Category Date Time Status Peripheral IV Care [RC] . DIRECTED Care 10/29/20 09:16 Active CULTURE BLOOD [BC] Stat Lab 10/29/20 09:28 Received CULTURE BLOOD [BC] Stat Lab 10/29/20 09:58 Received UA RFX LEXI AND CULT IF INDIC [URIN] Stat Lab 10/29/20 09:16 Ordered Sodium Chloride 0.9% [Saline Flush] Med 10/29/20 09:15 Active 10 ml FLUSH ASDIRECTED PRN Blood Culture x2 Reflex Set [OM.PC] Stat Oth 10/29/20 09:15 Ordered Peripheral IV Insertion Adult [OM.PC] Stat Oth 10/29/20 09:15 Ordered Medication Orders Sodium Chloride (Sodium Chloride 0.9% 10 Ml Syringe) 10 ml FLUSH ASDIRECTED PRN PRN Reason: Keep Vein Open Labs: Laboratory Tests 10/29/20 10/29/20 10/29/20 Range/Units 09:14 09:28 09:28 WBC 5.9 (5.0-10.0) 10^3/uL RBC 3.71 L (4.6-6.2) 10^6/uL Hgb 12.1 L D (14.0-18.0) g/dL Hct 36.2 L (40.0-54.0) % MCV 97.6 (80-100) fL MCH 32.6 (27.0-34.0) pg MCHC 33.4 (33.0-35.0) g/dL Plt Count 347 (150-450) 10^3/uL Neut % (Auto) 77.0 H (42.2-75.2) % Lymph % (Auto) 6.9 L (20.5-50.1) % Merrick % (Auto) 14.0 H (2-8) % Eos % (Auto) 1.4 (1.0-3.0) % Baso % (Auto) 0.7 (0.0-1.0) % Sodium 141 (136-145) mmol/L Potassium 4.4 (3.5-5.1) mmol/L Chloride 105 (98-107) mmol/L Carbon Dioxide 29 (21-32) mmol/L Anion Gap 11.4 (7-13) mEq/L BUN 20 H (7-18) mg/dL Creatinine 1.16 (0.70-1.30) mg/dL Est Cr Clr Drug Dosing 44.22 mL/min Estimated GFR (MDRD) 60 BUN/Creatinine Ratio 17.2 (No establ ref range) Glucose 105 H (70-99) mg/dL Lactic Acid (0.4-2.0) mmol/L Calcium 9.0 (8.5-10.1) mg/dL Total Bilirubin 0.4 (0.2-1.0) mg/dL AST 19 (15-37) U/L ALT 29 (16-63) U/L Alkaline Phosphatase 96 (46-116) U/L Troponin I High Sens 10 (<=76) pg/mL Total Protein 6.4 (6.4-8.2) g/dL Albumin 3.3 L (3.4-5.0) g/dL Globulin 3.1 Albumin/Globulin Ratio 1.06 SARS-CoV-2 RNA (RABIA) Negative (NEGATIVE) 10/29/20 Range/Units 09:28 WBC (5.0-10.0) 10^3/uL RBC (4.6-6.2) 10^6/uL Hgb (14.0-18.0) g/dL Hct (40.0-54.0) % MCV (80-100) fL MCH (27.0-34.0) pg MCHC (33.0-35.0) g/dL Plt Count (150-450) 10^3/uL Neut % (Auto) (42.2-75.2) % Lymph % (Auto) (20.5-50.1) % Merrick % (Auto) (2-8) % Eos % (Auto) (1.0-3.0) % Baso % (Auto) (0.0-1.0) % Sodium (136-145) mmol/L Potassium (3.5-5.1) mmol/L Chloride (98-107) mmol/L Carbon Dioxide (21-32) mmol/L Anion Gap (7-13) mEq/L BUN (7-18) mg/dL Creatinine (0.70-1.30) mg/dL Est Cr Clr Drug Dosing mL/min Estimated GFR (MDRD) BUN/Creatinine Ratio (No establ ref range) Glucose (70-99) mg/dL Lactic Acid 1.0 (0.4-2.0) mmol/L Calcium (8.5-10.1) mg/dL Total Bilirubin (0.2-1.0) mg/dL AST (15-37) U/L ALT (16-63) U/L Alkaline Phosphatase (46-116) U/L Troponin I High Sens (<=76) pg/mL Total Protein (6.4-8.2) g/dL Albumin (3.4-5.0) g/dL Globulin Albumin/Globulin Ratio SARS-CoV-2 RNA (RABIA) (NEGATIVE) Meds: Medications Generic Name Dose Route Start Last Admin Trade Name Freq PRN Reason Stop Dose Admin Sodium Chloride 10 ml 10/29/20 09:15 Sodium Chloride 0.9% 10 Ml Syringe FLUSH ASDIRECTED PRN Keep Vein Open Discontinued Medications Generic Name Dose Route Start Last Admin Trade Name Freq PRN Reason Stop Dose Admin Oxymetazoline HCl 1 ml 10/29/20 10:22 Oxymetazoline 0.05% Nasal [place] 30 Ml Bottle KELLI 10/29/20 10:23 ONETIME ONE Departure - Departure Time of Disposition: 10:29 Disposition: Home, Self-Care 01 Condition: Good Clinical Impression: URI (upper respiratory infection) Qualifiers: URI type: unspecified viral URI Qualified Code(s): J06.9 - Acute upper respiratory infection, unspecified Instructions: Viral Respiratory Infection, [id number] Forms: ED Department Discharge Additional Instructions: Use Afrin as directed for nasal congestion. Use tylenol or motrin for pain as needed. If your symtoms do not resolve in a week contact your primary care facility or return to the ER. If any new symptoms or concerns develop contact your primary care facility or return to the ER. Sepsis Event Note (ED) - Focused Exam Vital Signs: Vital Signs Temp Pulse Resp BP Pulse Ox 10/29/20 09:17 98.2 F 75 19 139/75 95
== END 2020-10-29 10:59 | disposition home or self-care (01) ==
LOC: DL.ED 08:41
DX: J06.9 Acute upper respiratory infection, unspecified (principal); I25.10 Atherosclerotic heart disease of native coronary artery without angina pectoris; I25.2 Old myocardial infarction; Z79.82 Long term (current) use of aspirin; Z79.899 Other long term (current) drug therapy; Z20.822 Contact with and (suspected) exposure to COVID-19
CPT/HCPCS: 36415; 70450; 80053; 83605; 84484; 85025; 87040; 93005; 99284; A9270; U0002

== ENCOUNTER 2023-03-24 00:41 | Inpatient (IN) | payer MEDICARE, OTHER ==
[2023-03-24] MEDS ORDERED: Sodium Chloride 0.9% 500 ML IV ONE (00:58)
[2023-03-24] MEDS ORDERED: Ondansetron 4 MG/2 ML SDV IVPUSH ONE (00:58)
[2023-03-24 01:32] LABS: BASOPHILS PERCENT AUTO 0.2 % (0.0-1.0); EOSINOPHILS PERCENT AUTO 0.1 % (1.0-3.0); HEMATOCRIT 41.4 % (40.0-54.0); LYMPHOCYTES PERCENT AUTO 1.1 % (20.5-50.1); MEAN CORPUSCULAR HGB CONC 33.8 g/dL (33.0-35.0); MEAN CORPUSCULAR VOLUME 97.6 fL (80-100); MONOCYTES PERCENT AUTO 5.6 % (2-8); PLATELET COUNT,PLT 386 10^3/uL (150-450); RED BLOOD CELL COUNT 4.24 10^6/uL (4.6-6.2); WHITE BLOOD CELL COUNT,WBC 13.2 10^3/uL (5.0-10.0)
[2023-03-24 01:47] LABS: A/G RATIO 1.3; ALANINE AMINOTRANSFERASE,ALT 27 U/L (16-63); ALBUMIN 3.5 g/dL (3.4-5.0); ALKALINE PHOSPHATASE 102 U/L (46-116); ANION GAP 15.1 mEq/L (7-13); ASPARTATE AMNIOTRANSFERASE,AST 15 U/L (15-37); BILIRUBIN TOTAL 0.6 mg/dL (0.2-1.0); BLOOD UREA NITROGEN,BUN 26 mg/dL (7-18); CALCIUM 8.5 mg/dL (8.5-10.1); CARBON DIOXIDE,CO2 27 mmol/L (21-32); CHLORIDE,CL 105 mmol/L (98-107); CREATININE 1.37 mg/dL (0.70-1.30); GLUCOSE RANDOM 158 mg/dL (70-99); LIPASE 36 U/L (16-77); POTASSIUM,K 4.1 mmol/L (3.5-5.1); PROTEIN TOTAL,TP 6.2 g/dL (6.4-8.2); SODIUM,NA 143 mmol/L (136-145)
[2023-03-24 01:50] LABS: ESTIMATED GFR 49 mL/min (>=60)
[2023-03-24] MEDS ORDERED: Metoclopramide 10 MG/2 ML SDV IVPUSH ONE (01:51)
[2023-03-24] MEDS ORDERED: Piperacillin/Tazobactam 3.375 GM in Sodium Chloride 0.9% 100 ML IV ONE (02:16)
[2023-03-24] MEDS ORDERED: Iopamidol 612 MG/ML 100 ML Bottle IVPUSH ONE (02:20)
[2023-03-24] MEDS ORDERED: Vancomycin 1 GM SDV ONE (02:22)
[2023-03-24] MEDS ORDERED: Benzocaine 20% Topical Spray UD MUCMEM ONE (03:58)
[2023-03-24] MEDS ORDERED: Lidocaine 2% Jelly 10 ML Urojet MUCMEM ONE (03:58)
[2023-03-24] MEDS ORDERED: Glycerin Adult 2 GM Supp RECTAL ONE (04:05)
[2023-03-24] MEDS ORDERED: Acetaminophen 650 MG Supp RECTAL STA (04:06)
[2023-03-24] MEDS ORDERED: fentaNYL 100 MCG/2 ML SDV IVPUSH PRN (04:13)
[2023-03-24 04:28] LABS: APPEARANCE,URINE CLEAR (CLEAR); BILIRUBIN,URINE NEGATIVE (NEGATIVE); COLOR,URINE YELLOW (YELLOW); GLUCOSE,URINE NEGATIVE (NEGATIVE); KETONES,URINE NEGATIVE (NEGATIVE); LEUKOCYTE ESTERASE,URINE NEGATIVE (NEGATIVE); NITRITE,URINE NEGATIVE (NEGATIVE); OCCULT BLOOD,URINE TRACE-INTACT (NEGATIVE); PROTEIN,URINE NEGATIVE (NEGATIVE); UROBILINOGEN,URINE 0.2 mg/dL (0.2-1.0)
[2023-03-24 04:53] LABS: BACTERIA,URINE RARE /HPF (0-FEW/HPF); EPITHELIAL CELLS,URINE RARE /HPF (NOT SEEN); MUCUS,URINE FEW /LPF (NOT SEEN); WBC,URINE 0-5 /HPF (0-5/HPF)
[2023-03-24 04:54] LABS: AMORPHOUS SEDIMENT,URINE RARE /HPF (NOT SEEN)
[2023-03-24] MEDS: Sodium Chloride 0.9% 1,000 ML IV SCH (06:31)
[2023-03-24] MEDS ORDERED: Piperacillin/Tazobactam 3.375 GM in Sodium Chloride 0.9% 100 ML IV SCH (08:30)
[2023-03-24] MEDS ORDERED: Piperacillin/Tazobactam 4.5 GM in Sodium Chloride 0.9% 100 ML IV ONE (09:00)
[2023-03-24] MEDS ORDERED: Ketorolac 30 MG/ML SDV IVPUSH PRN (09:52)
[2023-03-24] MEDS ORDERED: Acetaminophen 325 MG Tab PO PRN (09:52)
[2023-03-24] MEDS ORDERED: Albuterol/Ipratropium 3.0-0.5 MG/3 ML Neb Soln NEB PRN (09:52)
[2023-03-24] MEDS ORDERED: Sodium Chloride 0.9% 10 ML Syringe FLUSH PRN (09:52)
[2023-03-24] MEDS ORDERED: traMADol 50 MG Tab PO PRN (09:57)
[2023-03-24] MEDS ORDERED: Benzocaine 20% Oral Spray 59.2 ML Canister MUCMEM PRN (10:00)
[2023-03-24] MEDS ORDERED: guaiFENesin/Dextromethorphan 100-10 MG/5 ML Soln 5 ML Cup PO PRN (10:46)
[2023-03-24 11:28] LABS: C-REACTIVE PROTEIN 6.17 ng/dL (<=0.50)
[2023-03-24 11:40] LABS: LACTIC ACID 2.2 mmol/L (0.4-2.0)
[2023-03-24] MEDS: Pantoprazole 40 MG Vial IVPUSH SCH ×2 (11:58→22:30)
[2023-03-24] MEDS: Metoclopramide 10 MG/2 ML SDV IVPUSH SCH ×2 (11:58→17:45)
[2023-03-24] MEDS: Sodium Chloride 0.9% 10 ML Syringe FLUSH SCH (22:31)
[2023-03-25] MEDS: Metoclopramide 10 MG/2 ML SDV IVPUSH SCH ×2 (00:13→06:23)
[2023-03-25] MEDS: Piperacillin/Tazobactam 4.5 GM in Sodium Chloride 0.9% 100 ML IV SCH ×4 (00:13→23:00)
[2023-03-25 06:46] LABS: HEMATOCRIT 35.4 % (40.0-54.0); HEMOGLOBIN 11.7 g/dL (14.0-18.0); MEAN CORPUSCULAR HEMOGLOBIN 33.6 pg (27.0-34.0); MEAN CORPUSCULAR HGB CONC 33.1 g/dL (33.0-35.0); MEAN CORPUSCULAR VOLUME 101.7 fL (80-100); RED BLOOD CELL COUNT 3.48 10^6/uL (4.6-6.2); WHITE BLOOD CELL COUNT,WBC 9.6 10^3/uL (5.0-10.0)
[2023-03-25 07:01] LABS: ALBUMIN 2.7 g/dL (3.4-5.0); ANION GAP 12.7 mEq/L (7-13); BILIRUBIN TOTAL 0.6 mg/dL (0.2-1.0); BUN/CREATININE RATIO 23.9 (No establ ref range); C-REACTIVE PROTEIN 7.84 ng/dL (<=0.50); CALCIUM 7.5 mg/dL (8.5-10.1); CREATININE 1.42 mg/dL (0.70-1.30); EST CRCL DRUG DOSING (CG) 34.12 mL/min; POTASSIUM,K 3.7 mmol/L (3.5-5.1); PROTEIN TOTAL,TP 5.2 g/dL (6.4-8.2)
[2023-03-25 07:04] LABS: A/G RATIO 1.08
[2023-03-25] MEDS ORDERED: Finasteride 5 MG Tab PO SCH (09:00)
[2023-03-25] MEDS: Tamsulosin 0.4 MG Cap.ER PO SCH (09:09)
[2023-03-25] MEDS: Oxybutynin 5 MG Tab PO SCH (09:09)
[2023-03-25] MEDS: Sodium Chloride 0.9% 10 ML Syringe FLUSH SCH ×2 (09:10→20:55)
[2023-03-25] MEDS: Finasteride 5 MG Tab PO SCH (09:10)
[2023-03-25] MEDS: Pantoprazole 40 MG Vial IVPUSH SCH (09:16)
[2023-03-25] MEDS: Sodium Chloride 0.9% 1,000 ML IV SCH (09:49)
[2023-03-25] MEDS ORDERED: Loperamide 2 MG Cap PO PRN (21:11)
[2023-03-26] MEDS: Piperacillin/Tazobactam 4.5 GM in Sodium Chloride 0.9% 100 ML IV SCH (05:34)
[2023-03-26 06:22] LABS: HEMATOCRIT 33.8 % (40.0-54.0); HEMOGLOBIN 10.9 g/dL (14.0-18.0); MEAN CORPUSCULAR HEMOGLOBIN 32.9 pg (27.0-34.0); MEAN CORPUSCULAR HGB CONC 32.2 g/dL (33.0-35.0); MEAN CORPUSCULAR VOLUME 102.1 fL (80-100); RED BLOOD CELL COUNT 3.31 10^6/uL (4.6-6.2); WHITE BLOOD CELL COUNT,WBC 6.7 10^3/uL (5.0-10.0)
[2023-03-26 06:42] LABS: ALBUMIN 2.5 g/dL (3.4-5.0); ANION GAP 10.4 mEq/L (7-13); BILIRUBIN TOTAL 0.4 mg/dL (0.2-1.0); BUN/CREATININE RATIO 17.1 (No establ ref range); C-REACTIVE PROTEIN 3.54 ng/dL (<=0.50); CALCIUM 7.3 mg/dL (8.5-10.1); CREATININE 1.23 mg/dL (0.70-1.30); EST CRCL DRUG DOSING (CG) 39.39 mL/min; POTASSIUM,K 3.4 mmol/L (3.5-5.1); PROTEIN TOTAL,TP 5.1 g/dL (6.4-8.2)
[2023-03-26 06:49] LABS: A/G RATIO 0.96
[2023-03-26] MEDS ORDERED: Potassium Chloride 10 MEQ Tab.ER PO ONE (08:58)
[2023-03-26] MEDS: Oxybutynin 5 MG Tab PO SCH (09:55)
[2023-03-26] MEDS: Finasteride 5 MG Tab PO SCH (09:55)
[2023-03-26] MEDS: Tamsulosin 0.4 MG Cap.ER PO SCH (09:55)
[2023-03-26] MEDS: Sodium Chloride 0.9% 10 ML Syringe FLUSH SCH (09:56)
[2023-03-26 10:12] VITALS: BP 129/64; PULSE 69
== END 2023-03-26 10:54 | disposition home or self-care (01) | DRG 871 ==
LOC: DL.ED 00:41 → DL.MS 08:33
PROVIDERS: ADMIT Internal Medicine; ATTEND Internal Medicine
DX: A41.9 Sepsis, unspecified organism (principal); J18.9 Pneumonia, unspecified organism; J96.01 Acute respiratory failure with hypoxia; K56.50 Intestinal adhesions [bands], unspecified as to partial versus complete obstruction; E87.0 Hyperosmolality and hypernatremia; N17.9 Acute kidney failure, unspecified; E87.20 Acidosis, unspecified; I25.10 Atherosclerotic heart disease of native coronary artery without angina pectoris; R78.5 Finding of other psychotropic drug in blood; I11.0 Hypertensive heart disease with heart failure; I50.9 Heart failure, unspecified; K56.609 Unspecified intestinal obstruction, unspecified as to partial versus complete obstruction; M19.90 Unspecified osteoarthritis, unspecified site; Z96.652 Presence of left artificial knee joint; E87.8 Other disorders of electrolyte and fluid balance, not elsewhere classified; I95.9 Hypotension, unspecified; R73.9 Hyperglycemia, unspecified; R33.9 Retention of urine, unspecified; N32.0 Bladder-neck obstruction; E78.5 Hyperlipidemia, unspecified; N32.89 Other specified disorders of bladder; H91.90 Unspecified hearing loss, unspecified ear; F41.9 Anxiety disorder, unspecified; K59.00 Constipation, unspecified; I25.810 Atherosclerosis of coronary artery bypass graft(s) without angina pectoris; I25.2 Old myocardial infarction; Z95.5 Presence of coronary angioplasty implant and graft; Z95.1 Presence of aortocoronary bypass graft; Z95.2 Presence of prosthetic heart valve; Z85.46 Personal history of malignant neoplasm of prostate; Z98.890 Other specified postprocedural states; Z79.82 Long term (current) use of aspirin; Z98.49 Cataract extraction status, unspecified eye; Z79.899 Other long term (current) drug therapy; Z90.49 Acquired absence of other specified parts of digestive tract
CPT/HCPCS: 36415; 43752; 51702; 71045; 71260; 74018; 74177; 80053; 80202; 81001; 83605; 83690; 83735; 84145; 84484; 85025; 85027; 86140; 87040; 93005; 93010; 94010; 94060; 94667; 94668; 94760; 96361; 96365; 96366; 96367; 96375; 99284; 99285-25; A9270-GY; C9113; J2405; J2543; J2765; J3370; J3490; J7030; J7050; Q9967

== ENCOUNTER 2023-04-26 16:30 | Emergency (ER) | payer MEDICARE, OTHER ==
[2023-04-26 17:18] VITALS: BP 117/57; PULSE 90
== END 2023-04-26 17:19 | disposition home or self-care (01) ==
LOC: DL.ED 16:30
DX: K40.31 Unilateral inguinal hernia, with obstruction, without gangrene, recurrent (principal); I25.10 Atherosclerotic heart disease of native coronary artery without angina pectoris; I25.2 Old myocardial infarction; Z79.82 Long term (current) use of aspirin; Z95.5 Presence of coronary angioplasty implant and graft; Z79.899 Other long term (current) drug therapy; Z90.49 Acquired absence of other specified parts of digestive tract; Z95.1 Presence of aortocoronary bypass graft
CPT/HCPCS: 99283